=== PATIENT | female | born 2000 | race Caucasian/White ===

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

== ENCOUNTER 2021-03-24 22:45 | Emergency (ER) | payer MEDICAID, SELFPAY ==
[2021-03-24 22:46] VITALS: BP 132/87; PULSE 65; RESP 18; TEMP 36.4; O2SAT 99; BMI 19.2
[2021-03-24 23:14] LABS: White Blood Cells 0 SEEN /hpf (0-5)
[2021-03-24] MEDS: Acetaminophen 500 MG Tablet 1000 MG PO (23:16)
[2021-03-24 23:18] LABS: Color, Urine Yellow (Yellow); Glucose, Dipstick Normal (Normal); Ketone-Dipstick Negative (Negative); Leukocyte Esterase-Dipstick Negative /ul (Negative); Nitrite-Dipstick Negative (Negative); Occult Blood-Urine 10 /ul (Negative); Protein-Dipstick 100 mg/dl (Negative); Specific Gravity, Urine 1.025 (1.002-1.030); Urine Bilirubin Dipstick Negative (Negative); Urine Clarity Clear (Clear); Urine Urobilinogen Normal (Normal)
--- NOTE | 2021-03-24 23:25 | ED.VIS.LOWEX ---
HPI History of Present Illness Chief Complaint: Lower Extremity Injury Informant: patient Narrative Narrative: Worsening nontraumatic left knee pain over the past week. 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 States symptoms improved with rest however at work it would worsen. She is been off for 2 days restarted today with worsening symptoms. She is seen in urgent care 2 days ago reports x-ray obtained, told there is effusion. She is started on prednisone 40 mg twice a day for 5 days. Denies history of gastric ulcers or kidney injury. In addition today few hours ago noted lower pelvic discomfort with dysuria. Last menstrual period 2 to 3 weeks ago. No vaginal bleeding. She states she thought she had crutches at home when she saw urgent care however went home and was not there. She is limping. Denies fever. Prior similar symptoms: Yes PFSH PFSH Home Medications ibuprofen 400 mg PO Q6H PRN #20 tab 03/24/21 [Rx Last Taken Unknown] prednisone See Taper PO DAILY 03/24/21 [History Last Taken Unknown] Allergy/AdvReac Type Severity Reaction Status Date / Time No Known Allergies Allergy Verified 03/24/21 22:48 Surgical History History of tonsillectomy and adenoidectomy Social History Smoking Status: Current some day smoker tobacco type: cigarettes ROS ROS ED Constitutional Constitutional ED: Denies chills, fever(s) or sweats Eyes Eyes: Denies change in vision ENT ENT ED: Denies dysphagia or sore throat Cardiovascular Cardiovascular: Denies chest pain, leg edema, palpitations or racing heartbeat Respiratory/Chest Respiratory/Chest: Denies cough, dyspnea or dyspnea on exertion Gastrointestinal Gastrointestinal: Denies abdominal pain, diarrhea, nausea or vomiting Genitourinary Genitourinary ED: Reports dysuria; Denies hematuria or urinary frequency Musculoskeletal Musculoskeletal: Reports arthralgias; Denies back pain, extremity pain or neck pain Integumentary Denies rash or wounds Neurologic Neurologic: Denies headache(s), paresthesias or weakness EXAM Physical Exam Const Vital Signs: 03/24/21 22:46 Temperature 97.5 F L Temperature Source Temporal Pulse Rate 65 Respiratory Rate 18 Blood Pressure 132/87 H Blood Pressure Mean 102 Pulse Ox 99 Positive well nourished and well developed General Appearance ED: well developed and NAD HEENT Reports moist mucous membranes normocephalic and atraumatic Eyes PERRL, EOMs intact bilaterally and conjunctivae normal General Eye ED: Yes normal appearance of both eyes Neck no lymphadenopathy and supple General: Negative for tenderness Chest Wall Chest: Negative for tenderness Resp normal respiratory effort and normal air movement Effort and Inspection: symmetric chest movement; Negative for respiratory distress Cardio regular rate, regular rhythm and no murmurs Peripheral Pulses: pulses 2+ throughout GI normal to inspection, nondistended, normoactive bowel sounds and non-tender Palpation: Negative for guarding or rebound tenderness present Back/Spine no CVA tenderness and no thoracic nor lumbar tenderness Extremity Extremity Narrative: Left lower extremity: Knee extensor mechanism intact. No patellar tenderness. Negative varus and valgus. Positive Rebekah's. No deformities. Neuro vas intact distally. General Extremety ED: Negative for edema or tenderness General Extremity: Negative for edema Neuro oriented x3 and no sensory deficits noted Sensorium / Orientation: awake and alert Skin no rashes or lesions noted and no wounds MDM MDM MDM Narrative Medical decision making narrative: Patient reports x-ray knee pain a couple days ago. Is been no new injuries. No additional images will be obtained at this time. She has a knee brace. Crutches provided. With her reported pelvic pain back pain. hCG negative urine negative for infection however noted small occult blood. Initially given Tylenol and ibuprofen. Discussed further work-up as she is concerned for potential kidney stones with her pain. Discussed would be symptom control if there is a stone. She would like to refrain from imaging at this time we will try symptomatic treatment. Return precautions discussed. All questions were answered. Prescription for Motrin to use as needed. Lab Data Labs: Laboratory Results - last 24 hr 03/24/21 23:10 Urine Color Yellow Urine Clarity Clear Urine pH 6.0 Ur Specific [place] 1.025 Urine Protein 100 H Urine Glucose (UA) Normal Urine Ketones Negative Urine Occult Blood 10 H Urine Nitrite Negative Urine Bilirubin Negative Urine Urobilinogen Normal Ur Leukocyte Esterase Negative Urine RBC 0-5 SEEN Urine WBC 0 SEEN Ur Squamous Epith Cells 0-5 SEEN Urine Bacteria RARE Urine Mucus 2+ Urine Test Negative Discharge Plan Triage Chief Complaint: Lower Extremity Injury ED Provider: Callum Linder Dx/Rx/DC Orders Clinical Impression: Acute internal derangement of left knee, Pelvic pain, Hematuria Instructions: Abdominal Pain, What is Hematuria?, ED Knee Pain of Uncertain Cause Prescriptions: New ibuprofen 400 mg tablet 400 mg PO Q6H PRN (Reason: fever or pain) Qty: 20 RF: 0 No Action prednisone 20 mg tablet See Taper mg PO DAILY RF: 0 Primary Care Provider: Care Physician,No Primary Referrals: Salvador Shaikh DO [STAFF PHYSICIAN] - 3-5 Days Taya Rubio [NON-STAFF] - 1 Week Care Physician,No Primary [Primary Care Provider] - Disposition Disposition: Home, Self Care Discharge Date/Time: 03/25/21 00:11
[2021-03-24 23:28] LABS: Internal QC Validated? YES +Cl - CLEAR BKGD; Pregnancy, Urine Negative Negative
[2021-03-24 23:29] LABS: Bacteria RARE /hpf (None Seen); Mucous, Urine 2+ /hpf (<or=2+); Red Blood Cells-Urine 0-5 SEEN /hpf (0-5); Squamous Epithelial Cells - UA 0-5 SEEN /hpf (5-10)
[2021-03-24] MEDS: Ibuprofen 200 MG Tablet 400 MG PO (23:58)
== END 2021-03-25 00:11 | disposition home or self-care (01) ==
PROVIDERS: Emergency Provider Emergency Medicine
DX: M23.92 Unspecified internal derangement of left knee (principal); R30.0 Dysuria; R10.2 Pelvic and perineal pain; R31.9 Hematuria, unspecified; R26.9 Unspecified abnormalities of gait and mobility; F17.210 Nicotine dependence, cigarettes, uncomplicated
CPT/HCPCS: 81001; 81025; 99283

== ENCOUNTER 2021-05-11 17:42 | Emergency (ER) | payer MEDICAID, SELFPAY ==
[2021-05-11 17:43] VITALS: BP 121/81; PULSE 86; RESP 18; TEMP 35.7; O2SAT 97; BMI 20.5
[2021-05-11 19:27] LABS: Absolute Lymphocyte Count 2.77 X10^3/uL (0.83-4.51); Basophil# 0.04 X10^3/uL; Basophil% 0.5 % (0-1); Eosinophil# 0.11 X10^3/uL; Eosinophils% 1.4 % (0-5); Lymphocyte # 2.77 X10^3/ul (0.83-4.51); Lymphocyte % 36.3 % (19-41); Mean Corp Hgb Conc 34.1 g/dL (32-36); Mean Corpuscular Volume 90.9 fL (81-99); Mean Platelet Vol. 10.8 fl (6.2-12.0); Monocyte# 0.67 X10^3/uL; Monocyte% 8.8 % (0-10); NRBC Flagged by Analyzer 0 % (0-5); Neutrophil # 4.02 X10^3/uL (2.7-7.7); Neutrophil % 52.6 % (47-70); Platelet Count 197 K/mm3 (150-450); RBC Distribution Width CV 11.8 % (11.6-14.6); RBC Distribution Width SD 39.3 fl (35.1-43.9); Red Blood Count 4.51 M/mm3 (4.2-5.4); White Blood Count 7.6 K/mm3 (4.4-11.0)
[2021-05-11 19:43] LABS: Internal QC Validated? YES +Cl - CLEAR BKGD; Pregnancy, Serum, hCG Quali. NEGATIVE Negative
[2021-05-11 19:44] LABS: Anion Gap 6 (5-15); BUN 14 mg/dL (7-18); BUN/Creat Ratio 18.2 RATIO (10-20); Calcium,Total 9.1 mg/dL (8.5-10.1); Chloride 107 mmol/L (98-107); Creatinine, Serum 0.77 mg/dL (0.55-1.02); EST Glomerular Filtration Rate 102 mL/min (>60); Est Glom Filt Rate - Afr Amer 123 mL/min (>60); Estimated Creatinine Clearance 100.14 ml/min; Glucose 83 mg/dL (74-106); Potassium 3.9 mmol/L (3.5-5.1); Sodium Level 142 mmol/L (136-145)
--- NOTE | 2021-05-11 19:44 | ED.RN ---
PT STATES SHE DOESN'T WANT TO WAIT ANY LONGER BECAUSE SHE IS HUNGRY AND WANTS TO GO HOME. IV DC'D CANNULA INTACT. PT INSTRUCTED TO RETURN IF SHE CHANGED HER MIND
== END 2021-05-11 19:33 | disposition left against medical advice (07) ==
LOC: ED 19:51
DX: K92.2 Gastrointestinal hemorrhage, unspecified (principal); Z53.21 Procedure and treatment not carried out due to patient leaving prior to being seen by health care provider
CPT/HCPCS: 80048; 84703; 85025; A4216

== ENCOUNTER 2022-02-18 20:32 | Emergency (ER) | payer MEDICAID, SELFPAY ==
[2022-02-18 20:34] VITALS: BP 108/66; PULSE 80; RESP 15; TEMP 36.9; O2SAT 99; BMI 19.7
--- NOTE | 2022-02-18 21:23 | EDS_ITS ---
HPI HPI - GI History of Present Illness Chief Complaint: Abd Pain Informant: patient Abdominal Pain/Flank Pain Onset: Yesterday Context: Gradual Onset Timing: Continuous and Waxes and wanes Quality: Aching Location: - (My ovaries, seems to switch back and forth but mainly on the left) Current Severity: Mild Maximum Severity: Moderate Worsened by: Nothing Relieved by: Nothing Nausea/Vomiting/Emesis GI Symptom: Negative for Nausea or Vomiting Diarrhea/Melena/Hematochezia GI Symptom: Negative for Diarrhea, Melena or Hematochezia Associated Symptoms Associated Symptoms: Negative for Dysuria, Frequency or Hematuria Narrative Narrative: Patient has developed abdominal pain that started yesterday, feels ovarian to her because she has had a history of ovarian cysts and this is similar but not as bad. More on the left but she has had it on both sides. No radiation. No fevers or chills, no vaginal discharge or bleeding. She has done multiple home test that have all turned out positive and this past week because she has been later than usual for her cycle, she has been fairly irregular, she thinks the last menstrual cycle first day it was November 01, 2021. She denies any fevers, chills, syncope, lightheadedness, or other systemic symptoms. No recent injuries or falls. PFSH PFSH Medical History no medical history no medical history Home Medications ibuprofen 400 mg tablet 400 mg PO Q6H PRN fever or pain #20 tabs 03/24/21 [Rx Last Taken Unknown] Allergy/AdvReac Type Severity Reaction Status Date / Time No Known Allergies Allergy Verified 02/18/22 20:38 Surgical History History of tonsillectomy and adenoidectomy Social History Smoking Status: Current some day smoker tobacco type: cigarettes ROS ROS ED Constitutional Constitutional ED: Denies chills or fever(s) Eyes Eyes: Denies change in vision or diplopia ENT ENT ED: Denies rhinorrhea or sore throat Cardiovascular Cardiovascular: Denies chest pain or palpitations Respiratory/Chest Respiratory/Chest: Denies cough or dyspnea Gastrointestinal Gastrointestinal: Reports abdominal pain; Denies diarrhea, nausea or vomiting Genitourinary Genitourinary ED: Reports LMP (females 10-50) Details: Comment: (11/01/2021); Denies dysuria or hematuria Musculoskeletal Musculoskeletal: Denies back pain or neck pain Integumentary Denies abscess or rash Neurologic Neurologic: Denies headache(s), paresthesias or weakness Psychiatric Psychiatric: Denies anxiety or suicidal thoughts EXAM Physical Exam Const Vital Signs: 02/18/22 20:34 Temperature 98.4 F Temperature Source Temporal Pulse Rate 80 Respiratory Rate 15 Blood Pressure 108/66 Blood Pressure Mean 80 Pulse Ox 99 Oxygen Delivery Method Room Air Positive well nourished and well developed General Appearance ED: well developed and NAD HEENT Reports moist mucous membranes normocephalic and atraumatic Eyes PERRL and EOMs intact bilaterally Neck full ROM and supple Resp normal respiratory effort and clear to auscultation bilaterally Cardio regular rate, regular rhythm and no murmurs GI non-distended GI Narrative: Mild diffuse pelvic tenderness without guarding or rebound. Auscultation: normoactive bowel sounds Palpation: soft Back/Spine no CVA tenderness General Back: other FROM Extremity normal to inspection General Extremety ED: Negative for edema, pulses abnormal or tenderness General Extremity: Negative for edema or pulses abnormal Neuro oriented x3, CN's II-XII intact bilaterally and no sensory deficits noted Sensorium / Orientation: awake and alert Motor Exam: strength 5/5 throughout Skin no rashes or lesions noted and no wounds MDM MDM MDM Narrative Medical decision making narrative: I did a bedside ultrasound, I am not able to see any signs of an intrauterine . Her quantitative hCG came back at only 68. Urinalysis shows no infection. I discussed with Dr. Cordova on-call for OB. She agrees that given the patient's benign clinical presentation and, bilateral nature of discomfort, and very low quantitative hCG, very unlikely to see anything at this time and she would be amenable to getting an ultrasound in the morning since ultrasound is not here at the [facility]. She also agrees with a 48-hour quantitative hCG repeat, following up in the office, and she will be happy to follow-up on the patient and her ultrasound results. Discussed with the patient she is comfortable with that plan. She understands that we are unable to rule out ectopic at this low level hCG, but clinically she is not presenting like a ruptured ectopic with benign exam and normal vital signs. Lab Data Attestation: I reviewed the patient's lab results. Labs: Laboratory Results - last 24 hr 02/18/22 02/18/22 21:06 21:28 HCG, Quant 68 H Urine Color Yellow Urine Clarity Clear Urine pH 6.0 Ur Specific [place] 1.015 Urine Protein Negative Urine Glucose (UA) Normal Urine Ketones Negative Urine Occult Blood Negative Urine Nitrite Negative Urine Bilirubin Negative Urine Urobilinogen Normal Ur Leukocyte Esterase 25 H Urine RBC 0 SEEN Urine WBC 0-5 SEEN Ur Squamous Epith Cells 0-5 SEEN Urine Bacteria 1+ Urine Mucus 0 SEEN Discharge Plan Triage Chief Complaint: Abd Pain ED Provider: Sulaiman Mclain Dx/Rx/DC Orders Clinical Impression: Pelvic pain affecting in first trimester, antepartum Instructions: ED Abdominal Pain, Early Prescriptions: No Action ibuprofen 400 mg tablet 400 mg PO Q6H PRN (Reason: fever or pain) Qty: 20 0RF Other Ambulatory Orders: Transvaginal w/Preg US (Routine) Facility: [facility] - Location: [facility] Ordered By: Dr. Sulaiman Mclain Primary Care Provider: Care Physician,No Primary Referrals: Lawanda Orantes MD [Med Staff - Courtesy Staff] - 2 Days (may be on Saturday AM -- call office tomorrow for further instructions) Care Physician,No Primary [Primary Care Provider] - Disposition Disposition: Home, Self Care
[2022-02-18 21:34] LABS: Mucous, Urine 0 SEEN /hpf (<or=2+); Red Blood Cells-Urine 0 SEEN /hpf (0-5)
[2022-02-18 21:43] LABS: Color, Urine Yellow (Yellow); Glucose, Dipstick Normal (Normal); Ketone-Dipstick Negative (Negative); Leukocyte Esterase-Dipstick 25 /ul (Negative); Nitrite-Dipstick Negative (Negative); Occult Blood-Urine Negative /ul (Negative); Protein-Dipstick Negative (Negative); Specific Gravity, Urine 1.015 (1.002-1.030); Urine Bilirubin Dipstick Negative (Negative); Urine Clarity Clear (Clear); Urine Urobilinogen Normal (Normal)
[2022-02-18 21:59] LABS: Squamous Epithelial Cells - UA 0-5 SEEN /hpf (5-10)
[2022-02-18 22:00] LABS: Bacteria 1+ /hpf (None Seen)
[2022-02-18 22:01] LABS: White Blood Cells 0-5 SEEN /hpf (0-5)
[2022-02-18 22:05] LABS: hCG Titer Quant., Serum 68 mIU/mL (1-3)
[2022-02-18 22:26] VITALS: PULSE 79; RESP 12; O2SAT 97
[2022-02-18 23:01] VITALS: PULSE 79; RESP 12
[2022-02-18] MEDS: Acetaminophen 325 MG Tablet 650 MG PO (23:09)
== END 2022-02-18 23:13 | disposition home or self-care (01) ==
PROVIDERS: Emergency Provider Emergency Medicine; Visit Provider Emergency Medicine
DX: O99.891 Other specified diseases and conditions complicating pregnancy (principal); O99.331 Smoking (tobacco) complicating pregnancy, first trimester; F17.210 Nicotine dependence, cigarettes, uncomplicated; R10.2 Pelvic and perineal pain
CPT/HCPCS: 81001; 84702; 99284; A4216

== ENCOUNTER → 2022-02-19 | Outpatient (CLI) | payer MEDICAID, SELFPAY ==
--- NOTE | 2022-02-19 12:59 | US_ITS ---
STUDY: FIRST TRIMESTER OBSTETRICAL ULTRASOUND REASON FOR EXAM: Female, 21 years old early , pelvic pain, attention adnexa -- results to Dr. Orantes LMP: TECHNIQUE: Transvaginal TECHNICAL QUALITY: Adequate. PRIOR ULTRASOUND: None. FINDINGS: There is no demonstrated intrauterine gestational sac. There is no demonstrated yolk sac. The placenta is non-visualized. There is no demonstrated embryo ( pole). The uterus measures 9.1 x 4.4 x 6.1 cm. There is no demonstrated uterine fibroid. The cervix is closed. The endometrial stripe measures 17.4 mm and is hyperechoic. The right ovary measures 3.5 x 2.3 x 2.3 cm. There is no right ovarian cyst. There is no visualized right adnexal mass or complex lesion. The left ovary measures 3.3 x 2.0 x 2.8 cm. There is no left ovarian cyst. There is no visualized left adnexal mass or complex lesion. There is no fluid in the cul de sac. US/Transvaginal w/Preg US IMPRESSION: No intrauterine identified. Within normal limits pelvic ultrasound. Electronically Signed: Dara Marcelino MD at 13:58 EDT ,
== END | disposition home or self-care (01) ==
LOC: US 12:58
PROVIDERS: Referring Provider Emergency Medicine; Visit Provider Emergency Medicine
DX: O26.899 Other specified pregnancy related conditions, unspecified trimester (principal); R10.2 Pelvic and perineal pain; Z3A.00 Weeks of gestation of pregnancy not specified
CPT/HCPCS: 76817

== ENCOUNTER → 2022-04-04 | Outpatient (CLI) | payer MEDICAID, SELFPAY ==
[2022-04-04 10:17] LABS: Absolute Neutrophil Count 6.4 X10^3/uL (2.0-7.7); Basophil# 0.03 X10^3/uL; Basophil% 0.3 % (0-1); Eosinophil# 0.04 X10^3/uL; Eosinophils% 0.4 % (0-5); Hematocrit 37.6 % (37-47); Hemoglobin 13.3 g/dL (12.0-15.0); Lymphocyte % 23.4 % (19-41); Mean Corp Hgb Conc 35.4 g/dL (32-36); Mean Corpuscular Hgb 31.9 pg (27.0-32.0); Mean Corpuscular Volume 90.2 fL (81-99); Mean Platelet Vol. 10.6 fl (6.2-12.0); Monocyte# 0.75 X10^3/uL; NRBC Flagged by Analyzer 0 % (0-5); Neutrophil # 6.36 X10^3/uL (2.7-7.7); Neutrophil % 67.5 % (47-70); Platelet Count 177 K/mm3 (150-450); RBC Distribution Width CV 11.9 % (11.6-14.6); Red Blood Count 4.17 M/mm3 (4.2-5.4); White Blood Count 9.4 K/mm3 (4.4-11.0)
[2022-04-04 11:07] LABS: HIV - WCH Non-Reactive (Nonreactive); Hepatitis B Surface Antigen Non-Reactive (Nonreactive); Hepatitis C Antibody Non-Reactive (Nonreactive); Rubella IgG Reactive (Nonreactive); Syphilis Antibodies Non-reactive
[2022-04-05 16:18] LABS: V-Zoster IgG (Immunity) 1201 index (Immune >165)
[2022-04-06 08:09] LABS: Chlamydia By Nucleic Acid AMP Negative (Negative)
[2022-04-07 18:59] LABS: Gonococcus By Nucleic Acid AMP Negative (Negative)
[2022-04-10 17:25] LABS: HPV Reflexed? NOT INDICATED
== END | disposition home or self-care (01) ==
LOC: WOBLAB 09:41
PROVIDERS: Visit Provider Obstetrics & Gynecology
DX: Z34.81 Encounter for supervision of other normal pregnancy, first trimester (principal)
CPT/HCPCS: 36415; 85025; 86703; 86762; 86780; 86787; 86803; 87086; 87088; 87340; 87491; 87591; 88175; G0145

== ENCOUNTER 2022-05-07 12:08 | Emergency (ER) | payer MEDICAID, SELFPAY ==
[2022-05-07 12:09] VITALS: BP 115/97; PULSE 110; RESP 15; TEMP 36.8; O2SAT 98; BMI 20.5
[2022-05-07 12:41] VITALS: O2SAT 98
--- NOTE | 2022-05-07 13:18 | EDS_ITS ---
HPI HPI - URI History of Present Illness Chief Complaint: Cough Informant: patient Onset/Context/Timing Onset: Days (2-3) Context: Gradual Onset Timing: Continuous Quality: Aching Location: Generalized Worsened by: Swallowing Relieved by: Tylenol Associated Symptoms Associated Symptoms: Positive for Nasal Congestion, Myalgias, Shortness of Breath and Nonproductive cough; Negative for Headache, Sinus Pressure, Nausea, Vomiting, Diarrhea, Chest Pain, Hemoptysis or Productive Cough Narrative Narrative: Patient presents with sore throat, cough, and fever that has been getting worse over the past 2 to 3 days. Patient describes her pain as aching. Patient states she aches all over. Patient admits to some nasal congestion. Patient admits to some shortness of breath. Patient denies any sputum production. Patient states her temperature at home was up to 100.3. Patient states she has been taking Tylenol which has been helping with the fever but not with the pain. Patient states she has and cannot take anything else. ROS ROS ED Constitutional Constitutional ED: Reports fever(s); Denies chills Eyes Eyes: Denies blurry vision or change in vision ENT ENT ED: Reports rhinorrhea and sore throat Cardiovascular Cardiovascular: Denies chest pain or palpitations Respiratory/Chest Respiratory/Chest: Reports cough and dyspnea Gastrointestinal Gastrointestinal: Denies nausea or vomiting Genitourinary Genitourinary ED: Denies dysuria or hematuria Musculoskeletal Musculoskeletal: Reports back pain and myalgias; Denies neck pain Integumentary Denies abscess or rash Neurologic Neurologic: Reports headache(s); Denies weakness Allergic/Immunologic Allergic/Immunologic ED: Denies mouth swelling or urticaria [facility] Medical History Asthma Home Medications albuterol sulfate 90 mcg/actuation aerosol inhaler (ProAir HFA) 2 puff in halation Q4H PRN SOB 05/07/22 [History Last Taken Unknown] vitamins no.144-folic acid 400 mcg chewable tablet () 2 tab PO DAILY 05/07/22 [History Last Taken Unknown] Allergy/AdvReac Type Severity Reaction Status Date / Time No Known Allergies Allergy Verified 05/07/22 12:09 Surgical History History of tonsillectomy and adenoidectomy Social History Smoking Status: Current some day smoker tobacco type: cigarettes EXAM Physical Exam Const Vital Signs: 05/07/22 12:09 05/07/22 12:41 Temperature 98.3 F Temperature Source Temporal Pulse Rate 110 H Respiratory Rate 15 Respiratory Effort Normal Respiratory Depth Normal Respiratory Pattern Normal Blood Pressure 115/97 H Blood Pressure Mean 103 Pulse Ox 98 Oxygen Delivery Method Room Air Room Air Positive well nourished and well developed General Appearance ED: well developed HEENT Reports moist mucous membranes Throat: posterior oropharynx normal Neck supple and no JVD Resp normal respiratory effort and clear to auscultation bilaterally Cardio regular rate, regular rhythm and no murmurs GI normal to inspection, nondistended, normoactive bowel sounds and non-tender Palpation: soft Extremity normal to inspection General Extremety ED: Negative for edema or tenderness General Extremity: Negative for edema Neuro oriented x3, CN's II-XII intact bilaterally and no sensory deficits noted Sensorium / Orientation: alert Motor Exam: strength 5/5 throughout Psych mental status grossly normal Skin no rashes or lesions noted MDM MDM MDM Narrative Medical decision making narrative: COVID-19 rapid antigen was obtained and was positive. Influenza A and influenza B antigens were obtained and were negative. Patient was advised of her findings. Patient was instructed to continue Tylenol as needed for any fevers. Patient was instructed to drink plenty of fluids. Patient was instructed to follow-up with her primary care physician and [facility] in 5 to 7 days. Patient understood and was agreeable with the plan. All questions were answered. Discharge Plan Triage Chief Complaint: Cough ED Provider: Kit Mcginnis Dx/Rx/DC Orders Clinical Impression: COVID-19 Instructions: Coronavirus Disease 2019 (COVID-19): Caring for Yourself or Others Prescriptions: No Action albuterol sulfate [ProAir HFA] 90 mcg/actuation HFA aerosol inhaler 2 puff INHALATION Q4H PRN (Reason: SOB) Label Comments: Inhale 2 Puffs as instructed every 4 hours as needed. 400 mcg Tablet,Chewable 2 tab PO DAILY Primary Care Provider: Care Physician,No Primary Referrals: Artur Pickett MD [Med Staff - Associate School Psychologist] - 5-7 Days Care Physician,No Primary [Primary Care Provider] - Disposition Disposition: Home, Self Care
== END 2022-05-07 13:42 | disposition home or self-care (01) ==
PROVIDERS: Emergency Provider Emergency Medicine; Visit Provider Emergency Medicine
DX: U07.1 COVID-19 (principal); F17.210 Nicotine dependence, cigarettes, uncomplicated
CPT/HCPCS: 87428; 99282

== ENCOUNTER 2022-07-13 12:30 | Outpatient (CLI) | payer MEDICAID, SELFPAY ==
[2022-07-13 12:51] VITALS: BP 128/75; PULSE 80; PULSE 83; TEMP 36.6; O2SAT 99
[2022-07-13 12:52] VITALS: PULSE 80; O2SAT 99
[2022-07-13 12:59] VITALS: BMI 23.9
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
--- NOTE | 2022-07-30 11:56 | CASEMGMT ---
Social Work Labor and Delivery Late entry for: 07.28.22 Faxed Early [facility] Start Referral form for EHS services to [facility], . -KHURRAM Richards, BUYER BROKER
== END 2022-07-13 16:25 | disposition home or self-care (01) ==
LOC: WPOUT 12:37 → WP 12:38
PROVIDERS: Referring Provider Obstetrics & Gynecology; Visit Provider Obstetrics & Gynecology
DX: O26.899 Other specified pregnancy related conditions, unspecified trimester (principal); O99.330 Smoking (tobacco) complicating pregnancy, unspecified trimester; O99.334 Smoking (tobacco) complicating childbirth; F17.210 Nicotine dependence, cigarettes, uncomplicated; O99.891 Other specified diseases and conditions complicating pregnancy; R10.2 Pelvic and perineal pain; O9A.519 Psychological abuse complicating pregnancy, unspecified trimester
CPT/HCPCS: 59025; 59050; 99221; G0378

== ENCOUNTER → 2022-07-25 | Outpatient (CLI) | payer MEDICAID, SELFPAY ==
[2022-07-25 10:50] LABS: Absolute Lymphocyte Count 1.68 X10^3/uL (0.83-4.51); Absolute Neutrophil Count 8.8 X10^3/uL (2.0-7.7); Basophil# 0.04 X10^3/uL; Basophil% 0.3 % (0-1); Eosinophil# 0.08 X10^3/uL; Eosinophils% 0.7 % (0-5); Hematocrit 35.2 % (37-47); Hemoglobin 11.9 g/dL (12.0-15.0); Lymphocyte # 1.68 X10^3/ul (0.83-4.51); Lymphocyte % 14.6 % (19-41); Mean Corp Hgb Conc 33.8 g/dL (32-36); Mean Corpuscular Hgb 32.4 pg (27.0-32.0); Mean Corpuscular Volume 95.9 fL (81-99); Mean Platelet Vol. 10.9 fl (6.2-12.0); Monocyte# 0.82 X10^3/uL; Monocyte% 7.1 % (0-10); NRBC Flagged by Analyzer 0 % (0-5); Neutrophil # 8.76 X10^3/uL (2.7-7.7); Neutrophil % 76.5 % (47-70); Platelet Count 193 K/mm3 (150-450); RBC Distribution Width CV 12.5 % (11.6-14.6); RBC Distribution Width SD 43.8 fl (35.1-43.9); Red Blood Count 3.67 M/mm3 (4.2-5.4); White Blood Count 11.5 K/mm3 (4.4-11.0)
[2022-07-25 11:25] LABS: Glucose Challenge Gest 1H 50g 112 mg/dL (70-140)
== END | disposition home or self-care (01) ==
LOC: WOBLAB 09:24
PROVIDERS: Visit Provider Obstetrics & Gynecology
DX: Z34.82 Encounter for supervision of other normal pregnancy, second trimester (principal)
CPT/HCPCS: 36415; 82950; 85025

== ENCOUNTER → 2022-10-03 | Outpatient (CLI) | payer MEDICAID, SELFPAY ==
[2022-10-03 10:05] LABS: Absolute Neutrophil Count 8.6 X10^3/uL (2.0-7.7); Basophil# 0.04 X10^3/uL; Basophil% 0.4 % (0-1); Eosinophil# 0.08 X10^3/uL; Eosinophils% 0.7 % (0-5); Hematocrit 35.8 % (37-47); Hemoglobin 12.3 g/dL (12.0-15.0); Lymphocyte % 16.8 % (19-41); Mean Corp Hgb Conc 34.4 g/dL (32-36); Mean Corpuscular Hgb 31.8 pg (27.0-32.0); Mean Corpuscular Volume 92.5 fL (81-99); Mean Platelet Vol. 11.4 fl (6.2-12.0); Monocyte# 0.62 X10^3/uL; Monocyte% 5.5 % (0-10); NRBC Flagged by Analyzer 0 % (0-5); Neutrophil # 8.55 X10^3/uL (2.7-7.7); Neutrophil % 75.5 % (47-70); Platelet Count 163 K/mm3 (150-450); RBC Distribution Width CV 12.3 % (11.6-14.6); RBC Distribution Width SD 41.5 fl (35.1-43.9); Red Blood Count 3.87 M/mm3 (4.2-5.4); White Blood Count 11.3 K/mm3 (4.4-11.0)
[2022-10-03 10:55] LABS: Syphilis Antibodies Non-reactive
== END | disposition home or self-care (01) ==
LOC: WOBLAB 09:50
PROVIDERS: Visit Provider Obstetrics & Gynecology
DX: Z34.83 Encounter for supervision of other normal pregnancy, third trimester (principal); Z36.85 Encounter for antenatal screening for Streptococcus B
CPT/HCPCS: 36415; 85025; 86780; 87077; 87081; 87186

== ENCOUNTER 2022-10-17 11:00 | Inpatient (IN) | payer MEDICAID, SELFPAY ==
[2022-10-17 11:36] LABS: Absolute Neutrophil Count 9.5 X10^3/uL (2.0-7.7); Basophil# 0.05 X10^3/uL; Basophil% 0.4 % (0-1); Eosinophil# 0.06 X10^3/uL; Eosinophils% 0.5 % (0-5); Hematocrit 39.1 % (37-47); Lymphocyte % 12.2 % (19-41); Mean Corp Hgb Conc 33.2 g/dL (32-36); Mean Corpuscular Hgb 31.4 pg (27.0-32.0); Mean Corpuscular Volume 94.4 fL (81-99); Monocyte# 1.01 X10^3/uL; Monocyte% 8.2 % (0-10); NRBC Flagged by Analyzer 0 % (0-5); Neutrophil # 9.53 X10^3/uL (2.7-7.7); Neutrophil % 77.9 % (47-70); Platelet Count 179 K/mm3 (150-450); RBC Distribution Width CV 12.6 % (11.6-14.6); RBC Distribution Width SD 43.3 fl (35.1-43.9); Red Blood Count 4.14 M/mm3 (4.2-5.4); White Blood Count 12.3 K/mm3 (4.4-11.0)
[2022-10-17 11:57] LABS: ALB/GLOB Ratio 0.7 RATIO (0.9-2.4); AST(SGOT) 16 U/L (15-37); Alanine Aminotransfer ALT/SGPT 17 U/L (13-56); Albumin, Serum 2.6 g/dL (3.2-5.0); Alkaline Phosphatase 165 U/L (45-117); Anion Gap 7 (5-15); BUN 7 mg/dL (7-18); BUN/Creat Ratio 12.1 RATIO (10-20); Calcium,Total 8.8 mg/dL (8.5-10.1); Chloride 106 mmol/L (98-107); Creatinine, Serum 0.58 mg/dL (0.55-1.02); EST Glomerular Filtration Rate 140 mL/min (>60); Est Glom Filt Rate - Afr Amer 169 mL/min (>60); Globulin 3.9 g/dL (2.2-4.2); Glucose 91 mg/dL (74-106); Potassium 4.1 mmol/L (3.5-5.1); Protein, Total 6.5 g/dL (6.4-8.2); Sodium Level 137 mmol/L (136-145)
[2022-10-17] MEDS: Lactated Ringers 1,000 ML 50 ML IV ×2 (12:00→20:28)
[2022-10-17 12:10] VITALS: BP 117/76; PULSE 93; TEMP 36.7; O2SAT 98
[2022-10-17] MEDS: miSOPROStol 25 MCG TABLET VAGINAL ×3 (12:18→23:12)
[2022-10-17 12:21] VITALS: BMI 28.8
[2022-10-17 13:00] LABS: Syphilis Antibodies Non-reactive
[2022-10-17] MEDS: 0.9% Normal Saline Single 100 ML IV.SOLN. INTRA-UTER (13:59)
--- NOTE | 2022-10-17 14:08 | PCM.HP.BLA ---
History and Physical Date of Admission: 10/17/22 Chief complaint: Induction of labor cholestasis History present illness: 22-year-old G1, P0 at 38 weeks and 0 days with AVINASH 10/31/2022 arrives for induction of labor with cholestasis. Denies headache, vision changes, chest pain, shortness of breath, nausea vomit, right upper quadrant pain. Patient states good movement. is complicated by BMI 28, cholestasis of Obstetric history: G1: Current Past medical history: None Medications: vitamin Past surgical history: Tonsil and adenoids Allergies: Prednisone Social history: Former smoker, denies alcohol or drug use Family history: Denies history DVT or PE Review of systems: Besides above pertinent positives a full review of systems was performed and found to be negative Physical exam: Vitals: Blood pressure 117/76 pulse 93 temperature 98.1 ?F SPO2 90% on room air General: Normal-appearing no acute distress HEENT: Normocephalic/atraumatic no cervical lymphadenopathy Cardiac/respiratory: No use of accessory muscles, nonlabored breathing Abdomen: Soft, nontender, gravid Pelvic exam: Cervical exam 40/-3. Gutierrez bulb placed Extremities: No peripheral edema normal peripheral pulses Psych: Normal affect and demeanor nonpressured speech Labs: White blood cell count 12.3 hemoglobin 13.0 hematocrit 39.1% platelets 179. Sodium 137 potassium 4.1 creatinine 0.58 total bilirubin 0.4 AST 16 ALT 17 alk phos 165. RPR nonreactive. Blood type B+ antibody negative Assessment and plan: 22-year-old at 38 weeks and 0 days arrives for induction of labor with cholestasis Admit labor and delivery CFM GBS positive for penicillin Cytotec induction Gutierrez bulb placed, educated patient on Gutierrez bulb Cholestasis: Patient remains with itching of the hands and feet. LFTs within normal limits. For induction of labor today Routine orders Anesthesia see
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
[2022-10-17] MEDS: fentaNYL 100 MCG/2 ML Ampul IV (16:32)
[2022-10-17] MEDS: 0.9% Saline Lock 10 ML Syringe IV (16:32)
[2022-10-17 16:38] VITALS: BP 119/62; PULSE 80; PULSE 81; TEMP 36.7; O2SAT 97; O2SAT 98
--- NOTE | 2022-10-17 18:07 | PN.OBGYN_ITS ---
Subjective Subjective Patient ambulating in room cramping with contractions Objective Data Objective Data Vital Signs: Vital Signs Temp Pulse BP Pulse Ox 98.0 F 81 119/62 98 10/17/22 16:38 10/17/22 16:38 10/17/22 16:38 10/17/22 16:38 Weight: 168 lb Body Mass Index (BMI) 28.8 Intake & Output: Intake and Output for Last 24 Hours 10/15/22 10/16/22 10/17/22 23:59 23:59 23:59 Intake Total 105 / 105 Balance 105 / 105 Lab / Micro Data Result Diagrams: 10/17/22 11:20 10/17/22 11:20 Labs: Laboratory Results - last 24 hr 10/17/22 11:20: WBC 12.3 H, RBC 4.14 L, Hgb 13.0, Hct 39.1, MCV 94.4, MCH 31.4, MCHC 33.2, RDW Std Deviation 43.3, RDW Coeff of [place] 12.6, Plt Count 179, MPV 12.0, Immature Gran % (Auto) 0.800, Neut % (Auto) 77.9 H, Lymph % (Auto) 12.2 L, [place] % (Auto) 8.2, Eos % (Auto) 0.5, Baso % (Auto) 0.4, Absolute Neuts (auto) 9.5 H, Absolute Lymphs (auto) 1.50, Nucleated RBC % 0 10/17/22 11:20: Blood Type B POSITIVE, Antibody Screen NEGATIVE 10/17/22 11:20: Syphilis Total Ab Non-reactive 10/17/22 11:20: Sodium 137, Potassium 4.1, Chloride 106, Carbon Dioxide 24.0, A nion Gap 7, BUN 7, Creatinine 0.58, Est GFR (MDRD) Af Amer 169, Est GFR (MDRD) Non-Af 140, BUN/Creatinine Ratio 12.1, Glucose 91, Calcium 8.8, Total Bilirubin 0.40, AST 16, ALT 17, Alkaline Phosphatase 165 H, Total Protein 6.5, Albumin 2.6 L, Globulin 3.9, Albumin/Globulin Ratio 0.7 L Physical Exam Const alert, oriented x3, average body habitus, healthy appearing and well nourished HEENT normocephalic and moist oral mucous membranes Eyes PERRL Neck full ROM Resp normal respiratory effort, no retractions and no use of accessory muscles Extremity normal to inspection and full ROM Neuro moves all extremities and no focal motor deficits Psych mental status grossly normal, affect normal, speech normal and activity/motor behavior normal Assessment & Plan (1) : PLAN: Called by nursing with held Cytotec dose for frequent contractions, inst ructed to continue expectant management with Gutierrez bulb. Patient seen and examined. Gutierrez bulb still intact. Patient ambulating and cramping with contractions. Educated patient on plan with Gutierrez bulb and future Cytotec dosing
[2022-10-17] MEDS: Penicillin G 3,000,000 Units 50 ML 100 UNITS IV ×2 (18:43→22:40)
[2022-10-17 20:17] VITALS: BP 119/67; PULSE 83; TEMP 37.5; O2SAT 99
[2022-10-17 23:17] VITALS: O2SAT 98
[2022-10-17 23:18] VITALS: BP 115/59; PULSE 73; TEMP 36.9
[2022-10-18] VITALS (57 sets, daily range): BP systolic 94–143; BP diastolic 52–83; PULSE 61–108; RESP 16; TEMP 36.5–37.4; O2SAT 86–100
[2022-10-18] MEDS: LACTATED RINGERS 500 ML 999 ML IV ×2 (01:58→08:43)
[2022-10-18] MEDS: Penicillin G 3,000,000 Units 50 ML 75 UNITS IV ×2 (02:33→06:21)
[2022-10-18] MEDS: fentaNYL-bupivacaine (epidural) 100 ML BAG EPIDURAL ×3 (02:45→12:24)
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
[2022-10-18] MEDS: Oxytocin 15 Units/NS 250ml 15 UNITS/250 ML IV.SOLN 2 UNITS IV (05:10)
[2022-10-18] MEDS: Lactated Ringers 1,000 ML 200 ML IV ×2 (07:02→12:24)
[2022-10-18] MEDS: Penicillin G 3,000,000 Units 50 ML 100 UNITS IV (10:09)
[2022-10-18] MEDS: Oxytocin 15 Units/NS 250ml 15 UNITS/250 ML IV.SOLN 334 UNITS IV (13:45)
--- NOTE | 2022-10-18 13:48 | EX.PCM.OBRPT ---
Assessment & Plan (1) Vaginal delivery: COMMENT: delivery for [place], IOL cholestasis 38 severe shoulder dystocia 90 seconds (2) Shoulder dystocia during labor and delivery, delivered: COMMENT: 7lb 14 ounces, Alexandru, Suprapubic, Woodscrew, Mediolateral episiotomy. 90 seconds duration, discussed with patient consider primary next delivery if weight is close to current weight. Vaginal Delivery Operative Information Date of Procedure: 10/18/22 Pre-Operative Diagnosis: see a/p diagnoses Post-Operative Diagnosis: same plus shoulder dystocia Surgery / Procedure Performed: Spontaneous Vaginal Delivery Type of Anesthesia: Epidural Special Medications: none Estimated Blood Loss: 300 Fluids Replaced: crystalloid Findings Description of Procedure: Patient began pushing and delivered the head in the darren presentation. The head was delivered atraumatically and a loose nuchal cord was encountered and slipped over the head. gentle traction downward was placed on the head in attempt to deliver the shoulders which was unsuccessful, therefore Alexandru maneuver was attempted several times. this was unsuccessful and therefore suprapubic pressure was attempted several times, unsuccessful, and therefore it was attempted to manually reduce the anterior shoulder which was unsuccessful, so attempted rotation and delivery of the posterior was done, unsuccessful. right mediolateral episiotomy cut which was what finally created space for the woodscrew maneuver to rotate the right shoulder to anterior and then with gentle downward traction on the head the right shoulder reduced under the pubic bone and delivered. The posterior shoulders delivered without complication followed by the rest of the infant and the was placed on the maternal abdomen.total duration 90 seconds. terminal meconium was noted at delivery. Cord was clamped and cut and gentle traction was applied to the cord and the placenta delivered spontaneously immediately following it was noted to be intact with three-vessel cord. The perineum and vagina were inspected and noted to have a second degree perineal laceration in the location of the episiotomy, which was repaired in the usual fashion with 3-0 vicryl rapide. . EBL was 300. Patient and tolerated delivery well. Amniotic Fluid Description: Clear Placental Delivery Description: Spontaneous Placenta Disposition: [facility] Cord Vessel Description: 3 Vessels Cord Entanglement: Around neck x 1, loose Nuchal Cord Compression: With compression Delayed Cord Clamping: No Post Vaginal Delivery Medications Given After Delivery: - (Pitocin) Episiotomy Description: Right Mediolateral Complication Complications: - (moderate-severe shoulder dystocia) Procedures Urinary/Genital [id number]: [id number] Vaginal Delivery+ Care([facility])
[2022-10-18] MEDS: Naproxen 500 MG Tablet PO (16:53)
--- NOTE | 2022-10-18 21:05 | DCINST_ITS ---
Discharge Instructions Diet Discharge Diet: No restrictions Activity Discharge Activity: Return to Normal Activity, May Drive, May Shower and May Take a Tub Bath (in 4 weeks) May resume sexual activity in: 6-8 weeks (after seen by OB provider) Weight Bearing Status: Full weight bearing Lifting Restrictions: none Dressing / Incision Call your doctor if you observe: Fever of 101 or Higher, Inability to urinate, Using more than 1 pad per hour (for more than 2 hours in a row or more), Shortness of breath, Dizziness, Chest pain and - (headache not controlled with tylenol, change in vision) Follow Up Care When: in 6 weeks for visit, call the office to make the appointment. If you had elevated blood pressures call the office to be seen within 1 week. Test Results: Test results from this visit will be discussed in further detail at your follow- up appointment, if applicable. Discharge Plan Admission Admit Date/Time: 10/17/22 11:00 Attending Provider: Patricia Cowan Primary Care Provider: Care Physician,Maria Guadalupe Primary Discharge Orders/Prescriptions Prescriptions: No Action albuterol sulfate [ProAir HFA] 90 mcg/actuation HFA aerosol inhaler 2 puff INHALATION Q4H PRN (Reason: SOB) Label Comments: Inhale 2 Puffs as instructed every 4 hours as needed. 400 mcg Tablet,Chewable 2 tab PO DAILY Referrals / Follow Up: Care Physician,No Primary [Primary Care Provider] - Disposition Disposition (needs filled in before D/C Order can be placed): Home, Self Care
[2022-10-18] MEDS: Acetaminophen 500 MG Tablet 1000 MG PO (21:16)
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
[2022-10-19 04:21] VITALS: BP 115/74; PULSE 69; RESP 18; TEMP 36.8; O2SAT 96
--- NOTE | 2022-10-19 07:30 | NURSING ---
report given to Lisbeth Stephenson RN who is assuming care of pt at this time
[2022-10-19 09:15] VITALS: BP 130/63; PULSE 79; RESP 16; TEMP 36.2; O2SAT 97
[2022-10-19] MEDS: Naproxen 500 MG Tablet PO ×2 (09:28→22:37)
[2022-10-19] MEDS: Benzocaine/Lanolin/Aloe Vera 1 SPRAY EACH TOPICAL (09:28)
--- NOTE | 2022-10-19 10:07 | NURSING ---
started mother pumping due to special care nursery admission for baby. pump explained on use , set up and proper cleaning
[2022-10-19 12:10] VITALS: BP 118/69; PULSE 66; RESP 18; TEMP 36.4; O2SAT 99
--- NOTE | 2022-10-19 14:27 | PN.OBGYN_ITS ---
Subjective Subjective Patient doing well without complaints. Tolerating PO. Ambulating and voiding without difficulty. feeding well. Denies chest pain, shortness of breath, calf pain/swelling, fevers, chills, lightheadedness. Objective Data Objective Data Vital Signs: Vital Signs Temp Pulse Resp BP Pulse Ox O2 Del Method 97.5 F L 66 18 118/69 99 Room Air 10/19/22 12:10 10/19/22 12:10 10/19/22 12:10 10/19/22 12:10 10/19/22 12:10 10/19/22 12:10 Oxygen Delivery Method Room Air Weight: 168 lb Body Mass Index (BMI) 28.8 Intake & Output: Intake and Output for Last 24 Hours 10/17/22 10/18/22 10/19/22 23:59 23:59 23:59 Intake Total 1055.00 / 1055.00 3903.33 / 3903.33 Output Total 2475 / 2475 Balance 1055.00 / 1055.00 1428.33 / 1428.33 Lab / Micro Data Result Diagrams: 10/17/22 11:20 10/17/22 11:20 ROS Constitutional Constitutional: Reports systems reviewed and no addt'l complaints, except as documented Cardiovascular Cardiovascular: Reports systems reviewed and no addt'l complaints, except as documented Respiratory/Chest Respiratory/Chest: Reports systems reviewed and no addt'l complaints, except as documented Gastrointestinal Gastrointestinal: Reports systems reviewed and no addt'l complaints, except as documented Physical Exam Const alert, oriented x3 and no apparent distress HEENT Head and Scalp: atraumatic Resp normal respiratory effort GI soft to palpation and non-tender Bimanual Exam - Vag & Uterus: uterus non-tender Uterus Palpation: uterus fundus firm (below Umbilicus) Assessment & Plan (1) Shoulder dystocia during labor and delivery, delivered: COMMENT: 7lb 14 ounces, Alexandru, Suprapubic, [place]cre[place], Mediolateral episiotomy. 90 seconds duration, discussed with patient consider primary next delivery if weight is close to current weight. (2) Vaginal delivery: COMMENT: SM delivery for [place], IOL cholestasis 38 severe shoulder dystocia 90 seconds PLAN: Plan s/p PPD # 1 1. routine post delivery care 2. breast feeding- support given 3. rh positive 4. rubella immune
[2022-10-19] MEDS: Acetaminophen 500 MG Tablet 1000 MG PO (16:43)
[2022-10-19 16:44] VITALS: BP 108/69; PULSE 82; RESP 17; TEMP 36.1; O2SAT 96
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
[2022-10-19 22:30] VITALS: BP 108/75; PULSE 70; RESP 14; TEMP 36.6; O2SAT 98
[2022-10-20 02:40] VITALS: BP 89/53; BP 94/43; PULSE 66; RESP 16; TEMP 36.6; O2SAT 96
[2022-10-20 03:40] VITALS: BP 106/64
[2022-10-20 07:48] VITALS: BP 111/50; PULSE 69; RESP 16; TEMP 36.4; O2SAT 98
[2022-10-20] MEDS: Senna/Docusate Sodium 1 Tablet PO (07:57)
[2022-10-20] MEDS: Acetaminophen 500 MG Tablet 1000 MG PO ×2 (07:58→16:22)
--- NOTE | 2022-10-20 08:14 | PCM.PN.OB ---
Subjective Subjective Patient doing well without complaints. Tolerating PO. Ambulating and voiding without difficulty. feeding well. Denies chest pain, shortness of breath, calf pain/swelling, fevers, chills, lightheadedness. Objective Data Objective Data Vital Signs: Vital Signs Temp Pulse Resp BP Pulse Ox O2 Del Method 97.5 F L 69 16 111/50 L 98 Room Air 10/20/22 07:48 10/20/22 07:48 10/20/22 07:48 10/20/22 07:48 10/20/22 07:48 10/20/22 07:48 Oxygen Delivery Method Room Air Weight: 168 lb Body Mass Index (BMI) 28.8 Intake & Output: Intake and Output for Last 24 Hours 10/18/22 10/19/22 10/20/22 23:59 23:59 23:59 Intake Total 3903.33 / 3903.33 Output Total 2475 / 2475 Balance 1428.33 / 1428.33 Lab / Micro Data Result Diagrams: 10/17/22 11:20 10/17/22 11:20 ROS Constitutional Constitutional: Reports systems reviewed and no addt'l complaints, except as documented Cardiovascular Cardiovascular: Reports systems reviewed and no addt'l complaints, except as documented Respiratory/Chest Respiratory/Chest: Reports systems reviewed and no addt'l complaints, except as documented Gastrointestinal Gastrointestinal: Reports systems reviewed and no addt'l complaints, except as documented Physical Exam Const alert, oriented x3 and no apparent distress HEENT Head and Scalp: atraumatic Resp normal respiratory effort GI soft to palpation and non-tender Bimanual Exam - Vag & Uterus: uterus non-tender Uterus Palpation: uterus fundus firm (below Umbilicus) Assessment & Plan (1) Shoulder dystocia during labor and delivery, delivered: COMMENT: 7lb 14 ounces, Alexandru, Suprapubic, [place], Mediolateral episiotomy. 90 seconds duration, discussed with patient consider primary next delivery if weight is close to current weight. (2) Vaginal delivery: COMMENT: SM delivery for [place], IOL cholestasis 38 severe shoulder dystocia 90 seconds PLAN: Plan s/p PPD # 2 1. routine post delivery care 2. breast feeding- support given 3. rh positive 4. rubella immune
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
[2022-10-20 13:32] VITALS: BP 95/47; PULSE 78; RESP 16; TEMP 36.4; O2SAT 100
[2022-10-20] MEDS: Naproxen 500 MG Tablet PO (13:36)
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
== END 2022-10-20 16:51 | disposition home or self-care (01) | DRG 560 ==
PROVIDERS: Obstetrics & Gynecology; Admitting Provider Obstetrics & Gynecology; Visit Provider Obstetrics & Gynecology
DX: O26.62 Liver and biliary tract disorders in childbirth (principal); Z37.0 Single live birth; K83.1 Obstruction of bile duct; O99.824 Streptococcus B carrier state complicating childbirth; O69.81X0 Labor and delivery complicated by cord around neck, without compression, not applicable or unspecified; O66.0 Obstructed labor due to shoulder dystocia; O70.1 Second degree perineal laceration during delivery; Z3A.38 38 weeks gestation of pregnancy; Z87.891 Personal history of nicotine dependence; O77.0 Labor and delivery complicated by meconium in amniotic fluid
CPT/HCPCS: 59025; 59050; 80053; 85025; 86780; 86850; 86900; 86901; 99221; J7120; A4216; G0378

== ENCOUNTER 2022-10-26 20:45 | Emergency (ER) | payer MEDICAID, SELFPAY ==
[2022-10-26 20:46] VITALS: BP 118/69; PULSE 93; RESP 16; TEMP 36.8; O2SAT 98; BMI 25.2
--- NOTE | 2022-10-27 00:14 | ED.VIS.GI ---
HPI HPI - GI History of Present Illness Chief Complaint: Abd Pain Informant: patient Narrative Narrative: Patient delivered a baby about 1 week ago, ever since she has been having pain with trying to bear down and have a bowel movement and to urinate. She is having no trouble urinating, but she is really having trouble pushing stool out due to constipation/hard stools, and pain with bearing down. She feels like it is more in her rectum, not abdominal pain. No nausea, vomiting, fevers, chills, her vaginal bleeding has been improving it was a spontaneous vaginal delivery with severe shoulder dystocia, and she is just uncomfortable. [facility] Medical History Asthma Chlamydia Shoulder dystocia during labor and delivery, delivered Vaginal delivery Home Medications albuterol sulfate 90 mcg/actuation aerosol inhaler (ProAir HFA) 2 puff inhalation Q4H PRN SOB 05/07/22 [History Last Taken Unknown] vitamins no.144-folic acid 400 mcg chewable tablet () 2 tab PO DAILY preg 05/07/22 [History Last Taken 10/17/22 08:30] dicyclomine 10 mg capsule 20 mg PO Q6H PRN abdominal pain #30 CAPSULES 10/27/22 [Rx Last Taken Unknown] Allergy/AdvReac Type Severity Reaction Status Date / Time prednisone AdvReac Upset Verified 10/26/22 20:48 Stomach Surgical History History of tonsillectomy and adenoidectomy Social History Smoking Status: Former smoker ROS ROS ED Constitutional Constitutional ED: Denies chills or fever(s) Eyes Eyes: Denies change in vision or diplopia ENT ENT ED: Denies rhinorrhea or sore throat Cardiovascular Cardiovascular: Denies chest pain or palpitations Respiratory/Chest Respiratory/Chest: Denies cough or dyspnea Gastrointestinal Gastrointestinal: Reports constipation and other Details: rectal pain ; Denies abdominal pain, diarrhea, hematochezia, hemorrhoids, nausea or vomiting Genitourinary Genitourinary ED: Denies dysuria or hematuria Musculoskeletal Musculoskeletal: Denies back pain or neck pain Integumentary Denies abscess or rash Neurologic Neurologic: Denies headache(s), paresthesias or weakness Psychiatric Psychiatric: Denies anxiety or suicidal thoughts EXAM Physical Exam Const Vital Signs: 10/26/22 20:46 Temperature 98.2 F Temperature Source Temporal Pulse Rate 93 Respiratory Rate 16 Blood Pressure 118/69 Blood Pressure Mean 85 Pulse Ox 98 Oxygen Delivery Method Room Air Positive well nourished and well developed General Appearance ED: well developed and NAD HEENT Reports moist mucous membranes normocephalic and atraumatic Eyes PERRL and EOMs intact bilaterally Neck full ROM and supple Resp normal respiratory effort and clear to auscultation bilaterally Cardio regular rate, regular rhythm and no murmurs GI non-tender and non-distended GI Narrative: Rectal: Nontender, no palpable hard stool, no hemorrhoids no blood. Auscultation: normoactive bowel sounds Palpation: soft Back/Spine no CVA tenderness General Back: other FROM Extremity normal to inspection General Extremety ED: Negative for edema, pulses abnormal or tenderness General Extremity: Negative for edema or pulses abnormal Neuro oriented x3, CN's II-XII intact bilaterally and no sensory deficits noted Sensorium / Orientation: awake and alert Motor Exam: strength 5/5 throughout Psych mental status grossly normal and thought process normal Skin no rashes or lesions noted and no wounds MDM MDM MDM Narrative Medical decision making narrative: Rectal exam really was not helpful since I was not able to palpate any hard stool and loosen it up. Therefore I recommended a soapsuds enema which the patient was amenable to after discussing, this did help, it increased the pain temporarily, making it consistent with some colonic/pelvic floor pain, and then she did have 2 episodes of decent bowel movements, although she was still having the discomfort it was improved. She declines an offer for another and is comfortable going home, she has a stool softener, she is prescribed dicyclomine to use as needed and given a dose here prior to discharge along with ibuprofen, and advised to also use MiraLAX and follow-up with her OB doctor. This could be pelvic floor dysfunction, I suspect the majority of time this will spontaneously resolve with time, but if not she should follow-up with her analog circuit designer. Discharge Plan Triage Chief Complaint: Abd Pain ED Provider: Sulaiman Mclain Dx/Rx/DC Orders Clinical Impression: Constipation, PFD (pelvic floor dysfunction) Instructions: ED Constipation (Adult) Prescriptions: New dicyclomine 10 mg capsule 20 mg PO Q6H PRN (Reason: abdominal pain) Qty: 30 0RF No Action albuterol sulfate [ProAir HFA] 90 mcg/actuation HFA aerosol inhaler 2 puff INHALATION Q4H PRN (Reason: SOB) Label Comments: Inhale 2 Puffs as instructed every 4 hours as needed. 400 mcg Tablet,Chewable 2 tab PO DAILY Primary Care Provider: Care Physician,No Primary Referrals: Doctor,Your [Non-Staff] - 1 Week if not improving (your doctor or your OB) Activity Restrictions/Additional Instructions: Use MiraLAX 1 capful daily in addition to at least 8 ounces of water in addition to your stool softener to encourage soft stools. Disposition Disposition: Home, Self Care
[2022-10-27] MEDS: Dicyclomine 10 MG Capsule 20 MG PO (00:27)
[2022-10-27] MEDS: Ibuprofen 600 MG Tablet PO (00:28)
[2022-10-27 00:29] VITALS: RESP 18
== END 2022-10-27 00:31 | disposition home or self-care (01) ==
PROVIDERS: Emergency Provider Emergency Medicine; Visit Provider Emergency Medicine
DX: O99.63 Diseases of the digestive system complicating the puerperium (principal); K59.02 Outlet dysfunction constipation
CPT/HCPCS: 99285

== ENCOUNTER → 2022-12-06 | Outpatient (CLI) | payer MEDICAID, SELFPAY ==
[2022-12-06 13:03] LABS: Hematocrit 43.2 % (37-47); Hemoglobin 13.6 g/dL (12.0-15.0); Mean Corp Hgb Conc 31.5 g/dL (32-36); Mean Corpuscular Hgb 29.8 pg (27.0-32.0); Mean Corpuscular Volume 94.5 fL (81-99); Platelet Count 243 K/mm3 (150-450); RBC Distribution Width CV 11.2 % (11.6-14.6); RBC Distribution Width SD 38.5 fl (35.1-43.9); Red Blood Count 4.57 M/mm3 (4.2-5.4); White Blood Count 5.7 K/mm3 (4.4-11.0)
[2022-12-06 13:23] LABS: ALB/GLOB Ratio 1.1 RATIO (0.9-2.4); AST(SGOT) 21 U/L (15-37); Alanine Aminotransfer ALT/SGPT 27 U/L (13-56); Albumin, Serum 3.6 g/dL (3.2-5.0); Alkaline Phosphatase 100 U/L (45-117); Anion Gap 5 (5-15); BUN 11 mg/dL (7-18); BUN/Creat Ratio 11.8 RATIO (10-20); Calcium,Total 8.6 mg/dL (8.5-10.1); Chloride 105 mmol/L (98-107); Creatinine, Serum 0.93 mg/dL (0.55-1.02); EST Glomerular Filtration Rate 80 mL/min (>60); Est Glom Filt Rate - Afr Amer 97 mL/min (>60); Globulin 3.3 g/dL (2.2-4.2); Glucose 86 mg/dL (74-106); Potassium 3.9 mmol/L (3.5-5.1); Protein, Total 6.9 g/dL (6.4-8.2); Sodium Level 140 mmol/L (136-145)
== END | disposition home or self-care (01) ==
LOC: WOBLAB 11:21
PROVIDERS: Visit Provider Obstetrics & Gynecology
DX: K83.1 Obstruction of bile duct (principal)
CPT/HCPCS: 36415; 80053; 85027

== ENCOUNTER → 2023-02-20 | Outpatient (CLI) | payer MEDICAID, SELFPAY ==
[2023-02-27 06:08] LABS: HPV APTIMA, High Risk Positive (Negative); HPV Genotype 16, Aptima Negative (Negative); HPV Genotype 18,45 Aptima Negative (Negative)
== END | disposition home or self-care (01) ==
PROVIDERS: Referring Provider Obstetrics & Gynecology; Visit Provider Obstetrics & Gynecology
DX: Z12.4 Encounter for screening for malignant neoplasm of cervix (principal)
CPT/HCPCS: 87624; 88175; G0145

== ENCOUNTER 2024-01-22 16:06 | Emergency (ER) | payer MEDICAID, SELFPAY ==
[2024-01-22 16:06] VITALS: BP 120/73; PULSE 81; RESP 17; TEMP 36; O2SAT 99; BMI 22.0
--- NOTE | 2024-01-22 16:40 | ED.VIS.DENTA ---
HPI History of Present Illness Chief Complaint: Dental Informant: patient Onset/Context/Timing Onset: Days (2) Context: Gradual Onset Timing: Continuous Quality: Aching, throbbing Location: Right lower wisdom tooth Worsened by: Opening her jaw Relieved by: - (Nothing) Associated Symptoms Assocated Symptom - Dental: fever, jaw swelling, cold sensitivity and hot sensitivity; Negative for face swelling Narrative Narrative: Patient presents with right lower dental pain that has been getting worse over the past 2 days. Patient describes it as aching. Patient states it is constant. Patient states that is getting worse. Patient states she does have an appoint with a dentist. Patient states that her pain is worse with opening her jaw. Patient admits to some swelling of her jaw. Patient also admits to hot and cold sensitivity. Patient denies any fevers or chills. Patient denies any difficulty breathing or difficulty swallowing. [facility] Medical History Shoulder dystocia during labor and delivery, delivered Vaginal delivery Chlamydia Asthma Home Medications ?Medication ?Instructions ?Recorded ?Last Taken ?Type albuterol sulfate 90 mcg/actuation 2 puff inhalation Q4H PRN SOB 05/07/22 Unknown History aerosol inhaler (ProAir HFA) vitamins no.144-folic 2 tab PO DAILY preg 05/07/22 10/17/22 08:30 History acid 400 mcg chewable tablet () dicyclomine 10 mg capsule 20 mg (2 x 10 mg) PO Q6H PRN 10/27/22 Unknown Rx abdominal pain #30 CAPSULES penicillin V potassium 500 mg 500 mg PO 4X/DAY #40 tabs 01/22/24 Unknown Rx tablet Allergy/AdvReac Type Severity Reaction Status Date / Time prednisone AdvReac Upset Verified 01/22/24 16:06 Stomach Surgical History History of tonsillectomy and adenoidectomy Social History (Updated 01/22/24 @ 16:[address] Kit Mcginnis DO) Smoking Status: Current every day smoker tobacco type: cigarettes substance use type: marijuana ROS ROS ED Constitutional Constitutional ED: Denies chills or fever(s) Eyes Eyes: Denies blurry vision or change in vision ENT ENT ED: Denies rhinorrhea or sore throat Cardiovascular Cardiovascular: Denies chest pain or palpitations Respiratory/Chest Respiratory/Chest: Denies cough or dyspnea Gastrointestinal Gastrointestinal: Denies nausea or vomiting Genitourinary Genitourinary ED: Denies dysuria or hematuria Musculoskeletal Musculoskeletal: Denies back pain or neck pain Integumentary Denies abscess or rash Neurologic Neurologic: Denies headache(s) or weakness Allergic/Immunologic Allergic/Immunologic ED: Denies mouth swelling or urticaria EXAM Physical Exam Const Vital Signs: 01/22/24 16:06 Temperature 96.8 F L Temperature Source Temporal Pulse Rate 81 Respiratory Rate 17 Blood Pressure 120/73 Blood Pressure Mean 88 Pulse Ox 99 Oxygen Delivery Method Room Air Positive well nourished and well developed General Appearance ED: well developed and NAD HEENT HEENT Narrative: There is tenderness over the right lower third molar area. There is gingival edema around this tooth. There is no fluctuance. There is no discharge or drainage. There is no evidence of any abscess. There is no sublingual edema. There is no cervical tenderness. There is no evidence of Rashaun's angina. Oropharynx is clear. Airway is patent. Mouth ED: Yes oral and palatal mucosa normal Mouth: oral and palatal mucosa normal Teeth and Gingiva: gingiva abnormal Positive for gingival edema Throat: posterior oropharynx normal Neck supple and no JVD General: normal visual inspection; Negative for anterior neck swelling, tenderness or submandibular swelling Lymph Lymphatic: no lymphadenopathy noted Resp normal respiratory effort and clear to auscultation bilaterally Cardio regular rate and regular rhythm Neuro oriented x3, CN's II-XII intact bilaterally, moves all extremities, no focal motor deficits and no sensory deficits noted Sensorium / Orientation: alert Motor Exam: strength 5/5 throughout Psych mental status grossly normal MDM MDM MDM Narrative Medical decision making narrative: Smoking cessation was discussed. Patient was advised that this does look like a dental infection. Patient was given a dose of Pen-Vee K here. Patient was given 1 dose of [place] here. Patient was given a prescription for Pen-Vee K. Patient was instructed to follow-up with her dentist as scheduled. Patient was instructed continue Tylenol or ibuprofen as needed for pain. Patient was instructed to return if worse in any way. Patient understood and was agreeable with the plan. All questions were answered. Discharge Plan Triage Chief Complaint: Dental ED Provider: Schwiger,Kit Dx/Rx/DC Orders Clinical Impression: Odontalgia, Tobacco use disorder Instructions: ED Dental Pain Prescriptions: New penicillin V potassium 500 mg tablet 500 mg PO 4X/DAY Qty: 40 0RF No Action albuterol sulfate [ProAir HFA] 90 mcg/actuation HFA aerosol inhaler 2 puff INHALATION Q4H PRN (Reason: SOB) Patient Comments: Inhale 2 Puffs as instructed every 4 hours as needed. 400 mcg Tablet,Chewable 2 tab PO DAILY dicyclomine 10 mg capsule 20 mg PO Q6H PRN (Reason: abdominal pain) Qty: 30 0RF Primary Care Provider: Kiana Mahoney Referrals: Kiana Mahoney MD [Primary Care Provider] - 5-7 Days Dentist,Your [STAFF PHYSICIAN] - Keep [place] appointment Print Language: Kinyarwanda Disposition Disposition: Home, Self Care
[2024-01-22] MEDS: Penicillin Vk 250 MG Tablet 500 MG PO (16:53)
[2024-01-22] MEDS: HYDROcodone Bitartrate/Apap 5/325 Tablet PO (16:54)
[2024-01-22 16:57] VITALS: BP 117/83; PULSE 70; RESP 18; TEMP 36.4; O2SAT 97
== END 2024-01-22 16:58 | disposition home or self-care (01) ==
PROVIDERS: Emergency Provider Emergency Medicine; PCP Family Medicine; Visit Provider Emergency Medicine
DX: K08.89 Other specified disorders of teeth and supporting structures (principal); R50.9 Fever, unspecified; F17.210 Nicotine dependence, cigarettes, uncomplicated; Z79.899 Other long term (current) drug therapy
CPT/HCPCS: 99283

== ENCOUNTER → 2024-06-10 | Outpatient (CLI) | payer MEDICAID, SELFPAY ==
[2024-06-15 15:01] LABS: HPV Reflexed? NOT INDICATED
== END | disposition home or self-care (01) ==
LOC: LABSPEC 16:45
PROVIDERS: PCP Family Medicine; Referring Provider Advanced Practice Midwife; Visit Provider Advanced Practice Midwife
DX: Z12.4 Encounter for screening for malignant neoplasm of cervix (principal)
CPT/HCPCS: 88175; G0145

== ENCOUNTER 2024-08-15 16:14 | Emergency (ER) | payer MEDICAID, SELFPAY ==
[2024-08-15 16:15] VITALS: BP 125/94; PULSE 102; RESP 14; TEMP 36.1; O2SAT 100; BMI 20.9
--- NOTE | 2024-08-15 16:56 | EX.ED.DYSGE1 ---
HPI History of Present Illness Chief Complaint: Other, Pain/Inj Detail of Chief Complaint: Hemorrhoidal pain no bleeding. Informant: patient Onset/Context/Timing Onset: Days and - (History of intermittent hemorrhoids for years.) Context: Gradual Onset Timing: Continuous Current Severity: Mild Maximum Severity: Mild Narrative Narrative: Healthy 24-year-old female complains of hemorrhoidal pain. She has had hemorrhoids intermittently for years. Currently no bleeding. Prior similar symptoms: Yes Recent Illness/Hospitalization: No PFSH PFSH Medical History Shoulder dystocia during labor and delivery, delivered Vaginal delivery Chlamydia Asthma Home Medications ?Medication ?Instructions ?Recorded ?Last Taken ?Type bupropion HCl 300 mg 24 hr tablet, 300 mg PO QAM 06/05/24 Unknown History extended release (Wellbutrin XL) etonogestrel 68 mg subdermal 1 implant subdermal ONCE 06/05/24 Unknown History implant (Nexplanon) Allergy/AdvReac Type Severity Reaction Status Date / Time prednisone AdvReac Upset Verified 08/15/24 16:15 Stomach Family History Father Alcoholism Anxiety Depression Mother Anxiety Depression Arthritis Blood transfusion during current hospitalization Psychiatric care Grandmother Diabetes Hypertension High cholesterol Surgical History History of tonsillectomy and adenoidectomy Social History number of children: 1 current occupational status: employed current occupation: [employer] Smoking Status: Current every day smoker tobacco type: cigarettes alcohol intake: never substance use type: marijuana what type of physical activity do you participate in: none additional social history: s/o Sincere ROS ROS ED ROS Narrative Denies recent illness. Constitutional Constitutional ED: Denies chills or fever(s) Eyes Eyes: Denies blurry vision ENT ENT ED: Denies ear pain Cardiovascular Cardiovascular: Denies chest pain Respiratory/Chest Respiratory/Chest: Denies cough Gastrointestinal Gastrointestinal: Denies abdominal pain Genitourinary Genitourinary ED: Denies dysuria or hematuria Musculoskeletal Musculoskeletal: Denies arthralgias Integumentary Denies Abrasions Neurologic Neurologic: Denies headache(s) Psychiatric Psychiatric: Denies anxiety Endocrine Endocrinology: Denies cold intolerance Hematologic/Lymphatic Hematologic/Lymphatic: Reports none Allergic/Immunologic Allergic/Immunologic ED: Denies mouth swelling, tongue swelling or urticaria EXAM Physical Exam Narrative Exam Narrative: Well-appearing 24-year-old female para vital signs are stable afebrile. Significant other at bedside. H EENT exam normal. Pupils round reactive light. Moist mucous membranes. Lungs clear. Heart regular rhythm rate about 100 no murmur. Chest wall and ribs nontender. Abdomen soft nontender. Moving all 4 extremities. Nontender no edema. Buttock exam was significant other present in the room patient has to medium size hemorrhoids. They are not thrombosed. There is no blood or active bleeding. Otherwise exam unremarkable. Const Vital Signs: 08/15/24 16:14 08/15/24 16:15 Temperature 97 F L Temperature Source Temporal Pulse Rate 102 H Respiratory Rate 14 Respiratory Effort Normal Non-Labored Respiratory Pattern Normal Blood Pressure 125/94 H Blood Pressure Mean 104 Pulse Ox 100 Oxygen Delivery Method Room Air Positive well nourished and well developed; Negative for obese, cachectic, contractures or unkempt General Appearance ED: well developed and NAD; Negative for unkempt, cachectic, contractures, cyanotic or diaphoretic Nutritional Appearance: Negative for cachectic or obese HEENT Reports moist mucous membranes Negative for trauma or tenderness Eyes PERRL and EOMs intact bilaterally Neck no lymphadenopathy, supple and no JVD Chest Wall inspection of chest normal and palpation of chest normal Resp normal respiratory effort and clear to auscultation bilaterally Effort and Inspection: Negative for retractions Auscultation: Negative for rales, rhonchi, wheezes or diminished lung sounds Cardio regular rate, regular rhythm, S1 normal heart sound, S2 normal heart sound and no murmurs GI normal to inspection, nondistended, normoactive bowel sounds, non-tender, non-distended and no masses GI Narrative: 2 anal hemorrhoids. Not bleeding. Not thrombosed. Auscultation: normoactive bowel sounds Palpation: soft; Negative for tender or guarding Back/Spine no CVA tenderness Extremity normal to inspection General Extremety ED: Negative for edema or tenderness General Extremity: Negative for edema Neuro oriented x3 and CN's II-XII intact bilaterally Sensorium / Orientation: alert; Negative for lethargic or stuporous Motor Exam: strength 5/5 throughout Psych mental status grossly normal Appearance: Negative for unkempt Attitude: No agitated Mood & Affect: Negative for depressed, anxious or tearful Skin no rashes or lesions noted, no wounds and skin turgor normal General Skin Exam: Negative for elasticity normal Lesions: No lesion noted Rashes: No rashes noted Trauma: Negative for abrasion Wounds: Negative for wounds noted MDM MDM MDM Narrative Medical decision making narrative: 24-year-old female history of hemorrhoids is too active hemorrhoids currently. Not thrombosed or bleeding. Preparation H cream. Warm soaks. Follow-up if she wants them resected if not improving. Discharge Plan Triage Chief Complaint: Other, Pain/Inj ED Provider: Aniket Chakraborty Dx/Rx/DC Orders Clinical Impression: External hemorrhoid Instructions: ED Hemorrhoids Prescriptions: No Action bupropion HCl [Wellbutrin XL] 300 mg tablet extended release 24 hr 300 mg PO QAM Nexplanon 68 mg implant 1 implant subdermal ONCE Rx Instructions: as a single dose Primary Care Provider: Kiana Mahoney Referrals: Kiana Mahoney MD [Primary Care Provider] - As Needed Activity Restrictions/Additional Instructions: Warm soaks to decrease the hemorrhoids and the pain. Motrin and Tylenol for pain. Preparation H or hemorrhoidal cream 3 or 4 times a day. He should start feeling better in the next several days. If they are constantly a problem and follow-up with a general surgeon to have them resected. Print Language: Armenian Disposition Disposition: Home, Self Care
== END 2024-08-15 16:59 | disposition home or self-care (01) ==
PROVIDERS: Emergency Provider Emergency Medicine; PCP Family Medicine; Referring Provider Emergency Medicine; Visit Provider Emergency Medicine
DX: K64.4 Residual hemorrhoidal skin tags (principal); F17.210 Nicotine dependence, cigarettes, uncomplicated
CPT/HCPCS: 99282

== ENCOUNTER 2024-08-19 11:37 | Emergency (ER) | payer MEDICAID, SELFPAY ==
[2024-08-19 11:38] VITALS: BP 121/86; PULSE 104; RESP 14; TEMP 36.6; O2SAT 99; BMI 20.7
--- NOTE | 2024-08-19 12:26 | EX.ED.DYSGE1 ---
HPI History of Present Illness Chief Complaint: Constipation Narrative Narrative: Chief complaint and HPI: Constipation. 24-year-old female with past medical history of chronic constipation presents for evaluation of constipation. Patient is not on a daily bowel regimen. She states on Saturday she had a flareup of her external hemorrhoids. She was seen in our emergency department on 08/15 secondary to the pain. Hemorrhoids were nonthrombosed and patient was discharged home with Preparation H cream. She states on Saturday she followed up with general surgery. On chart review by reading their note. She was found to have non-thrombosed hemorrhoids as well as an anal fissure. She was discharged home on diltiazem/lidocaine suppositories twice daily x 14 days. She was educated to continue sitz bath', stool softeners, and MiraLAX. Patient states that she has been trying these at home without any improvement in her constipation. She tried a home enema but could not tolerate it secondary to pain. She states that she took a bottle of mag citrate without improvement. She was told to come to the emergency department. She endorses some decreased p.o. intake secondary to fullness. She denies any fever, chills, shortness of breath, chest pain, nausea, vomiting, dysuria Review of systems: See HPI Medications: As listed on the chart Allergies: As listed on the chart PFSH: Per chart Vital signs: As listed on the chart. Reviewed. Physical exam: Gen: A&O x3, NAD Head: Normocephalic, atraumatic Eyes: No sclera icterus, conjunctiva clear ENT: Moist mucous membranes Neck: Trachea midline, No JVD CV: RRR, no murmurs, no peripheral edema Resp: Lungs CTA BL, no w/r/c GI: Abd soft, non-distended, non-tender, no r/r/g Rectal: Two non-thrombosed external hemorrhoids. Patient was willing to attempt rectal exam. I used my fifth digit but patient could not tolerate. I was able to barely enter through the anus. No stool on the glove. No stool ball felt. Musc: Full ROM, no deformity Skin: Warm, dry Neuro: Alert, oriented, grossly intact, sensation intact Psych: Cooperative, appropriate mood and affect [facility] Medical History Shoulder dystocia during labor and delivery, delivered Vaginal delivery Chlamydia Asthma Home Medications ?Medication ?Instructions ?Recorded ?Last Taken ?Type bupropion HCl 300 mg 24 hr tablet, 300 mg PO QAM 06/05/24 Unknown History extended release (Wellbutrin XL) etonogestrel 68 mg subdermal 1 implant subdermal ONCE 06/05/24 Unknown History implant (Nexplanon) Diltiazem 10mg/Lidocaine 50mg 1 supp OH BID rectal pain #30 supp 08/17/24 Unknown Rx Suppository 30 supp suppository Allergy/AdvReac Type Severity Reaction Status Date / Time prednisone AdvReac Upset Verified 08/19/24 11:41 Stomach Family History Father Alcoholism Anxiety Depression Mother Anxiety Depression Arthritis Blood transfusion during current hospitalization Psychiatric care Grandmother Diabetes Hypertension High cholesterol Surgical History S/P wisdom tooth extraction History of tonsillectomy and adenoidectomy Social History number of children: 1 current occupational status: employed current occupation: [employer] Smoking Status: Current every day smoker tobacco type: cigarettes alcohol intake: never substance use type: marijuana what type of physical activity do you participate in: none additional social history: s/o Sincere EXAM Physical Exam Const Vital Signs: 08/19/24 11:38 Temperature 97.9 F Temperature Source Oral Pulse Rate 104 H Respiratory Rate 14 Blood Pressure 121/86 H Blood Pressure Mean 97 Pulse Ox 99 Oxygen Delivery Method Room Air MDM MDM MDM Narrative Medical decision making narrative: 24-year-old female with past medical history of chronic constipation presents for evaluation of constipation. Differential diagnosis includes but is not limited to symptomatic constipation, obstruction, electrolyte abnormality. Given patient's extensive bowel regiment without production of stool will get CT abdomen pelvis to better assess intra-abdomina pathology. Patient has never had a colonoscopy. NS bolus ordered. Abdominal labs ordered. CBC without leukocytosis or anemia. CMP unremarkable without electrolyte abnormality, BALBIR, transaminitis. negative. CT abdomen pelvis shows constipation. She has edema along the portal triads in the liver. This may represent liver congestion or hepatitis. Patient has no right upper quadrant abdominal pain. She is not having any fever, chills. Her liver enzymes are unremarkable including her bilirubin. No clear etiology for this. Patient will need to have this further worked up outpatient. Given patient's continued constipation without being able to tolerate enema and already on an extensive bowel regimen, I contacted general surgery Dr. Hairston as patient was evaluated in their office. He was updated of all the results and findings. He agrees with outpatient workup for the liver findings. Recommended GoLytely for constipation. Patient can either perform this at home or in the emergency department. He recommended doing 2 L and not a full bowel prep of 4 L. Patient is to follow-up in their office. Explained all the results and the plan to the patient as well as her mother. They confirmed understanding. Patient would like to do GoLytely at home. I do believe this is acceptable. Patient will be discharged home. Return precautions explained. Follow-up with general surgery and PCP. Impression: 1. Constipation 2. Hemorrhoids 3. Fissure Lab Data Labs: Laboratory Results - last 24 hr 08/19/24 12:35 WBC 5.5 RBC 4.55 Hgb 14.2 Hct 41.6 MCV 91.4 MCH 31.2 MCHC 34.1 RDW Std Deviation 40.0 RDW Coeff of [place] 11.9 Plt Count 187 MPV 10.5 Immature Gran % (Auto) 0.200 Neut % (Auto) 50.7 Lymph % (Auto) 38.1 [place] % (Auto) 8.5 Eos % (Auto) 2.0 Baso % (Auto) 0.5 Absolute Neuts (auto) 2.8 Absolute Lymphs (auto) 2.11 Nucleated RBC % 0 Sodium 140 Potassium 4.5 Chloride 102 Carbon Dioxide 25.2 Anion Gap 12 BUN 9 Creatinine 0.86 Estim Creat Clear Calc 87.85 Est GFR (MDRD) Non-Af 98 BUN/Creatinine Ratio 11.1 Glucose 96 Calcium 9.2 Total Bilirubin 0.50 AST 24 ALT 13 Alkaline Phosphatase 69 Total Protein 7.2 Albumin 4.3 Globulin 2.9 Albumin/Globulin Ratio 1.5 Serum , Qual NEGATIVE Radiography Diagnostic Testing: Clinical Impression(s) from Imaging Studies Abdomen/Pelvis CT 08/19/24 14:30 IMPRESSION: Large amount of fecal material is seen throughout the colon. Edema along the portal triads in the liver. This may represent liver congestion or hepatitis. Reading Location: [place] [id number] Discharge Plan Triage Chief Complaint: Constipation ED Provider: Joshua Infante Dx/Rx/DC Orders Clinical Impression: Constipation, Hemorrhoids Instructions: ED Constipation (Adult), ED Hemorrhoids Prescriptions: No Action bupropion HCl [Wellbutrin XL] 300 mg tablet extended release 24 hr 300 mg PO QAM Nexplanon 68 mg implant 1 implant subdermal ONCE Rx Instructions: as a single dose Diltiazem 10mg/Lidocaine 50mg Suppository 30 supp suppository 1 supp [place] BID Qty: 30 1RF Rx Instructions: diltiazem HCl (bulk) powder 300 mg; lidocaine (bulk) powder 1500 mg; Per 30 supp Primary Care Provider: Kiana Mahoney Referrals: Kiana Mahoney MD [Primary Care Provider] - 3-5 Days Salvador Hairston MD [Med Staff - Active Staff] - 3-5 Days Activity Restrictions/Additional Instructions: Follow-up with general surgery as well as her primary care physician. Recommend taking the first liter of GoLytely and monitor bowel movements. If you do not have bowel movements recommend taking the second liter. The GoLytely may aggravate your hemorrhoids. Follow-up with your primary care physician/general surgery for the CT findings of your liver. Print Language: Chinese Disposition Disposition: Home, Self Care
[2024-08-19 12:50] LABS: Absolute Lymphocyte Count 2.11 X10^3/uL (0.83-4.51); Absolute Neutrophil Count 2.8 X10^3/uL (2.0-7.7); Basophil# 0.03 X10^3/uL; Basophil% 0.5 % (0-1); Eosinophil# 0.11 X10^3/uL; Hematocrit 41.6 % (37-47); Hemoglobin 14.2 g/dL (12.0-15.0); Lymphocyte # 2.11 X10^3/ul (0.83-4.51); Lymphocyte % 38.1 % (19-41); Mean Corp Hgb Conc 34.1 g/dL (32-36); Mean Corpuscular Hgb 31.2 pg (27.0-32.0); Mean Corpuscular Volume 91.4 fL (81-99); Mean Platelet Vol. 10.5 fl (6.2-12.0); Monocyte# 0.47 X10^3/uL; Monocyte% 8.5 % (0-10); NRBC Flagged by Analyzer 0 % (0-5); Neutrophil # 2.81 X10^3/uL (2.7-7.7); Neutrophil % 50.7 % (47-70); Platelet Count 187 K/mm3 (150-450); RBC Distribution Width CV 11.9 % (11.6-14.6); Red Blood Count 4.55 M/mm3 (4.2-5.4); White Blood Count 5.5 K/mm3 (4.4-11.0)
[2024-08-19] MEDS: 0.9% Normal Saline (1000mL) 1,000 ML 1000 ML IV (12:56)
[2024-08-19 14:05] LABS: ALB/GLOB Ratio 1.5 RATIO (0.9-2.4); AST(SGOT) 24 U/L (<=31); Alanine Aminotransfer ALT/SGPT 13 U/L (<=34); Albumin, Serum 4.3 g/dL (3.5-5.0); Alkaline Phosphatase 69 U/L (35-104); Anion Gap 12 (5-15); BUN 9 mg/dL (4-19); BUN/Creat Ratio 11.1 RATIO (10-20); Calcium,Total 9.2 mg/dL (7.6-11.0); Carbon Dioxide 25.2 mmol/L (21.0-32.0); Chloride 102 mmol/L (98-108); Creatinine, Serum 0.86 mg/dL (0.70-1.20); EST Glomerular Filtration Rate 98 (>60); Estimated Creatinine Clearance 87.85 ml/min (50-250); Globulin 2.9 g/dL (2.2-4.2); Glucose 96 mg/dL (70-99); Potassium 4.5 mmol/L (3.3-5.1); Protein, Total 7.2 g/dL (5.9-8.4); Sodium Level 140 mmol/L (133-145)
[2024-08-19 14:20] LABS: Internal QC Validated? YES +Cl - CLEAR BKGD; Pregnancy, Serum, hCG Quali. NEGATIVE Negative; Record Kit Lot#, Serum Preg. 899023
--- NOTE | 2024-08-19 14:30 | CT_ITS ---
PROCEDURE: ABDOMEN/PELVIS W IV CONT ONLY 08/19/2024 REASON FOR EXAM: CONSTIPATION TECHNIQUE: Abdomen CT without and with intravenous contrast. Coronal and Sagittal reconstruction series were provided. PATIENT PREPARATION: Per protocol ORAL CONTRAST TYPE: None. CONTRAST: Isovue-300 VOLUME: 100mL One or more dose reduction techniques were used (e.g., Automated exposure control, adjustment of the mA and/or kV according to patient size, use of iterative reconstruction technique. RADIATION DOSE SUMMARY: CTDlvol: 10 mGy DLP: 343.33 mGycm COMPARISON: January 26, 2020. FINDINGS: Lung bases: Unremarkable. Liver: Edema along the portal triads. This may represent liver congestion or hepatitis. Gallbladder: Unremarkable Spleen: Borderline splenomegaly. Pancreas: Normal size without evidence of mass surrounding inflammation or ductal dilation. Adrenals: Unremarkable Kidneys: Normal renal sizes. No hydronephrosis. Bladder: Unremarkable Reproductive Organs: Follicles are seen in both ovaries more prominent in the right ovary. Bowel: Large amount of fecal material is seen in the colon. Appendix: The appendix is not identified. There is no inflammatory process identified in the right lower quadrant to suggest appendicitis. Lymph nodes: No suspicious lymph node enlargement. Vasculature: The abdominal aorta and IVC are normal. Peritoneum / Retroperitoneum: Unremarkable Bones: Unremarkable CT/Abdomen/Pelvis W IV Cont ONLY IMPRESSION: Large amount of fecal material is seen throughout the colon. Edema along the portal triads in the liver. This may represent liver congestio n or hepatitis. Reading Location: [place] [address]
[2024-08-19] MEDS: Electrolyte Solution/Peg's 4000 ML 2000 ML PO (16:23)
== END 2024-08-19 16:25 | disposition home or self-care (01) ==
PROVIDERS: Emergency Provider Surgery; PCP Family Medicine; Referring Provider Surgery; Visit Provider Surgery
DX: K59.00 Constipation, unspecified (principal); K64.9 Unspecified hemorrhoids; F17.210 Nicotine dependence, cigarettes, uncomplicated; K60.2 Anal fissure, unspecified
CPT/HCPCS: 74177; 80053; 84703; 85025; 96360; 96361; 99283; Q9967; A4216